=== PATIENT | female | born 1980 | race Hispanic/Latino ===

== ENCOUNTER 2024-07-22 02:15 | Emergency (ER) | payer SELFPAY ==
[~2024-07-22] VITALS: Ht 154.9 cm; Wt 89.8 kg
[2024-07-22 02:20] VITALS: PULSE 96; RESP 17; TEMP 98
[2024-07-22] MEDS: ONDANSETRON HCL 4 MG ORAL DISINTEGRATING TAB PO ONE (02:40)
[2024-07-22] MEDS: MECLIZINE HCL 12.5 MG TAB PO ONE (02:40)
[2024-07-22] MEDS ORDERED: ONDANSETRON ODT4 MG PO (02:44)
[2024-07-22] MEDS ORDERED: MECLIZINE HCL25 MG PO (02:44)
[2024-07-22 03:17] VITALS: BP 125/82; O2SAT 95
== END 2024-07-22 03:20 | disposition home or self-care (01) ==
LOC: FSED 02:22
DX: H81.11 Benign paroxysmal vertigo, right ear (principal); R11.2 Nausea with vomiting, unspecified; R05.9 Cough, unspecified; R09.89 Other specified symptoms and signs involving the circulatory and respiratory systems
CPT/HCPCS: 99283; J8597; Q0162